=== PATIENT | female | born 1990 | race American Indian/Alaskan Native ===

== ENCOUNTER 2017-03-06 22:31 | Emergency (ER) | payer MEDICAID ==
[2017-03-07 00:16] LABS: Basophils % (Auto) 0.9 % (0.0-1.8); Eosinophils % (Auto) 0.7 % (0.0-4.3); Hemoglobin 10.1 gm/dl (10.1-14.3); Mean Corpuscular HGB Conc 32 % (30-34); Mean Corpuscular Volume 78 fl (79-97); Platelet Count 249 K/mm3 (140-440); Red Blood Count 4.12 M/mm3 (3.65-5.03); Red Cell Distribution Width 16.6 % (13.2-15.2); White Blood Count 9.3 K/mm3 (4.5-11.0)
[2017-03-07 00:19] LABS: Mean Corpuscular Hemoglobin 25 pg (28-32)
[2017-03-07 00:31] LABS: Anion Gap 18 mmol/L; BUN/Creatinine Ratio 18.57; Blood Urea Nitrogen 13 mg/dL (7-17); Calcium 9.6 mg/dL (8.4-10.2); Carbon Dioxide 27 mmol/L (22-30); Chloride 99.2 mmol/L (98-107); Glucose 116 mg/dL (65-100); Sodium 140 mmol/L (137-145)
--- NOTE | 2017-03-07 07:07 | Emergency Department Report ---
ED Headache HPI - General Chief Complaint: Headache Stated Complaint: HIGH BP Time Seen by Provider: 03/07/17 07:06 - History of Present Illness Initial Comments: Describes a moderate right-sided headache which is throbbing for the last 2-3 days. She states he's had headaches like this before. She's had some photosensitivity some nausea and perhaps some scotomata. She states that she thinks She's had migraine headaches although she has not been formally diagnosed. She is not on medicine for her blood pressure. She denies fever chills or neck pain or stiffness. Timing/Duration: other (2-3 days) Quality: mild, moderate Head Injury Location: temporal, parietal Recent Head Trauma: no recent headache/trauma, occasional headaches Modifying Factors: worse with: cold therapy, exposure to light, immobilization, medication, movement, rest, other Associated Symptoms: nausea/vomiting (some mild nausea no vomiting). denies: denies symptoms, confusion, fatigue, facial pain, fever/chills, flushing, loss of consciousness, nasal congestion, nasal drainage, numbness in legs/feet, rash , seizures, sinus infection, stiff neck, vision changes, weakness, other Allergies/Adverse Reactions: Allergies No Known Allergies Allergy (Verified 03/06/17 23:51) Home Medications: Ambulatory Orders Butalb/Acetaminophen/Caffeine [Fioricet 50-300-40 mg CAP] 1 cap PO Q6HR PRN #14 cap 03/07/17 ED Review of Systems ROS: Stated complaint: HIGH BP Other details as noted in HPI Constitutional: denies: chills, fever Eyes: denies: eye pain, eye discharge, vision change ENT: denies: ear pain, throat pain Respiratory: denies: cough, shortness of breath, wheezing Cardiovascular: denies: chest pain, palpitations Endocrine: no symptoms reported Gastrointestinal: nausea. denies: abdominal pain, diarrhea Genitourinary: denies: urgency, dysuria, discharge Musculoskeletal: denies: back pain, joint swelling, arthralgia Skin: denies: rash, lesions Neurological: headache. denies: weakness, paresthesias Psychiatric: denies: anxiety, depression Hematological/Lymphatic: denies: easy bleeding, easy bruising ED Past Medical Hx - Past Medical History Previous Medical History?: Yes Hx Hypertension: Yes Additional medical history: ANXIETY - Surgical History Past Surgical History?: No - Social History Smoking Status: Never Smoker Substance Use Type: None - Medications Home Medications: Home Medications Medication Instructions Recorded Confirmed Last Taken Type Butalb/Acetaminophen/Caffeine 1 cap PO Q6HR PRN #14 cap 03/07/17 Unknown Rx [Fioricet 50-300-40 mg CAP] ED Physical Exam - General Limitations: No Limitations General appearance: alert, in no apparent distress - Head Head exam: Present: atraumatic, normocephalic - Eye Eye exam: Present: normal appearance, PERRL, EOMI. Absent: scleral icterus - ENT ENT exam: Present: normal exam, mucous membranes moist - Neck Neck exam: Present: normal inspection. Absent: tenderness, meningismus - Respiratory Respiratory exam: Present: normal lung sounds bilaterally. Absent: respiratory distress - Cardiovascular Cardiovascular Exam: Present: regular rate, normal rhythm. Absent: systolic murmur, diastolic murmur, rubs, gallop - GI/Abdominal GI/Abdominal exam: Present: soft, normal bowel sounds. Absent: distended, tenderness, guarding, rebound, rigid - Extremities Exam Extremities exam: Present: normal inspection - Back Exam Back exam: Present: normal inspection - Neurological Exam Neurological exam: Present: alert, oriented X3, CN II-XII intact, normal gait, other (cerebellar testing was normal). Absent: motor sensory deficit - Psychiatric Psychiatric exam: Present: normal affect, normal mood - Skin Skin exam: Present: warm, dry, intact, normal color. Absent: rash ED Course Vital Signs 03/06/17 03/07/17 23:51 03:34 Temperature 98.4 F Pulse Rate 110 H 102 H Respiratory 16 14 Rate Blood Pressure 161/115 157/110 O2 Sat by Pulse 100 100 Oximetry - Reevaluation(s) Reevaluation #1: Symptoms resolved after analgesia. Patient is neurologically intact and comfortable. CT of her brain was normal. 03/07/17 08:55 ED Medical Decision Making - Lab Data Result diagrams: 03/07/17 00:03 03/07/17 00:03 Laboratory Results - last 24 hr 03/07/17 03/07/17 00:03 00:03 WBC 9.3 RBC 4.12 Hgb 10.1 Hct 32.0 MCV 78 L MCH 25 L MCHC 32 RDW 16.6 H Plt Count 249 Lymph % (Auto) 36.9 H [place] % (Auto) 4.7 Eos % (Auto) 0.7 Baso % (Auto) 0.9 Lymph # 3.4 [place] # 0.4 Eos # 0.1 Baso # 0.1 Seg Neutrophils % 56.8 Seg Neutrophils # 5.3 Sodium 140 Potassium 4.0 Chloride 99.2 Carbon Dioxide 27 Anion Gap 18 BUN 13 Creatinine 0.7 Estimated GFR > 60 BUN/Creatinine Ratio 18.57 Glucose 116 H Calcium 9.6 - EKG Data EKG shows normal: sinus rhythm, axis, intervals, QRS complexes, ST-T waves Rate: normal - EKG Data Interpretation: no acute changes - Radiology Data Radiology results: report reviewed (no acute intracranial ABN) Critical care attestation.: If time is entered above; I have spent that time in minutes in the direct care of this critically ill patient, excluding procedure time. ED Disposition Clinical Impression: Labile hypertension Cephalalgia Qualifiers: Headache type: unspecified Headache chronicity pattern: acute headache Intractability: not intractable Qualified Code(s): R51 - Headache Disposition: DISCHARGED TO HOME OR SELFCARE Is pt being admited?: No Does the pt Need Aspirin: No Condition: Stable Instructions: Hypertension (ED) Additional Instructions: Her blood pressure was elevated when you arrived but decreased into the normal range on its own. YOU should follow this with the primary care provider. I have also referred due to a neurologist. Return any acute change or problem. Prescriptions: Butalb/Acetaminophen/Caffeine [Fioricet 50-300-40 mg CAP] 1 cap PO Q6HR PRN #14 cap PRN Reason: Headache Referrals: ADRIANNE ISRAEL MD [Primary Care Provider] - 3-5 Days [facility] [Provider Group] - 3-5 Days YADIRA CASTRO MD [Staff Physician] - 3-5 Days Time of Disposition: 08:58
[2017-03-07] MEDS ORDERED: ZOFRAN IV ONE (07:19)
[2017-03-07] MEDS ORDERED: MORPHINE IV ONE (07:19)
[2017-03-07 09:01] VITALS: BP 118/66
== END 2017-03-07 09:25 | disposition home or self-care (01) ==
LOC: ED 22:31
DX: I10 Essential (primary) hypertension (principal); R51 Headache; F41.9 Anxiety disorder, unspecified
CPT/HCPCS: 36415; 80048; 85025; 93005; 93010; 96374; 96375; 99283; J2270; J2405